=== PATIENT | male | born 1980 | race Caucasian/White ===

== ENCOUNTER 2016-08-26 23:22 | Emergency (ER) | payer OTHER ==
[~2016-08-26 23:22] MED LIST: COL100 PO; FLE10 PO; LIPI20 PO; MORPHINE SULFAT60 MG PO; MORPHINE10 MG PO; MSC30 PO; PHE25 PO; PRI20 PO; PROTONIX40 MG PO; REG5 PO
[2016-08-27 00:36] LABS: BASOPHIL % 0.3 % (0-2); PLATELET COUNT 254 x10^3mcL (130-400); RED CELL DISTRIBUTION WIDTH 13.1 % (11.5-14.5)
[2016-08-27 00:43] LABS: CALCIUM 9.4 mg/dL (8.5-10.1); CARBON DIOXIDE 23.7 mmol/L (21-32); CHLORIDE SERUM 104 mmol/L (98-107); CREATININE SERUM 1.2 mg/dL (0.7-1.3); GFR1 > 60 mL/min; GLUCOSE SERUM 142 mg/dL (74-106); POTASSIUM SERUM 3.5 mmol/L (3.5-5.1); SODIUM SERUM 140 mmol/L (136-145)
[2016-08-27 00:49] LABS: ALBUMIN 4.6 g/dL (3.4-5.0); ALKALINE PHOSPHATASE 66 U/L (46-116); ALT/SGPT 24 U/L (16-63); AST/SGOT 17 U/L (15-37); BILIRUBIN TOTAL 0.5 mg/dL (0.20-1.00); LIPASE 222 IU/L (73-393)
[2016-08-27 00:50] LABS: TOTAL PROTEIN, SERUM 8.5 g/dL (6.4-8.2)
[2016-08-27 02:51] VITALS: BP 108/56
== END 2016-08-27 02:51 | disposition home or self-care (01) ==
LOC: ED 23:22
PROVIDERS: Emergency Medicine
DX: R10.13 Epigastric pain (principal); R11.10 Vomiting, unspecified
CPT/HCPCS: 36415; J1630; J1885; J2270; Q0162

== ENCOUNTER 2016-08-29 03:16 | Inpatient (IN) | payer OTHER ==
[~2016-08-29] VITALS: Ht 172.7 cm; Wt 90.7 kg
[2016-08-29 04:05] LABS: BASOPHIL % 0 % (0-2); PLATELET COUNT 255 x10^3mcL (130-400); RED CELL DISTRIBUTION WIDTH 13.3 % (11.5-14.5)
[2016-08-29 04:12] LABS: CALCIUM 9.1 mg/dL (8.5-10.1); CARBON DIOXIDE 23.6 mmol/L (21-32); CHLORIDE SERUM 103 mmol/L (98-107); CREATININE SERUM 1.2 mg/dL (0.7-1.3); GFR1 > 60 mL/min; GLUCOSE SERUM 119 mg/dL (74-106); POTASSIUM SERUM 3.4 mmol/L (3.5-5.1); SODIUM SERUM 139 mmol/L (136-145)
[2016-08-29 04:26] LABS: ALBUMIN 4.3 g/dL (3.4-5.0); ALKALINE PHOSPHATASE 63 U/L (46-116); ALT/SGPT 27 U/L (16-63); AMYLASE 47 U/L (25-115); AST/SGOT 21 U/L (15-37); BILIRUBIN TOTAL 0.57 mg/dL (0.20-1.00); LIPASE 308 IU/L (73-393); TOTAL PROTEIN, SERUM 7.9 g/dL (6.4-8.2)
[2016-08-29 05:40] LABS: FREE T4 1.17 ng/dL (0.76-1.46); FREE THYROXINE INDEX 2.9 ug/dL (1.4-4.5); T4(THYROXINE) 8.4 ug/dL (4.7-13.3)
[2016-08-29 05:48] LABS: T3 TOTAL 1.24 ng/mL
[2016-08-29 05:52] LABS: MAGNESIUM 1.8 mg/dL (1.8-2.4); PHOSPHOROUS 1.5 mg/dL (2.5-4.9)
[2016-08-29 05:53] LABS: CHOLESTEROL/HDL RATIO 2.6
[2016-08-29 07:52] VITALS: BP 109/64; BP 709/64
[2016-08-29 08:20] LABS: microscopic required? YES; urine erythrocyte NEGATIVE (NEGATIVE)
[2016-08-29 08:36] LABS: AMPHETAMINE QUAL UR NONE DETECTED (NEG <=1000)
[2016-08-29 09:40] VITALS: BP 105/57
[2016-08-29 13:42] VITALS: BP 123/66
[2016-08-29 17:05] VITALS: BP 109/64
[2016-08-29 20:00] VITALS: BP 109/69
[2016-08-29 21:25] VITALS: BP 117/78
[2016-08-30 05:31] VITALS: BP 114/78
[2016-08-30 08:32] VITALS: BP 136/83
[2016-08-30] MEDS ORDERED: ZOFRAN ODT8 MG PO (08:42)
[2016-08-30 08:54] VITALS: Ht 172.7 cm; Wt 90.7 kg
[2016-08-30 09:02] VITALS: BP 136/83
== END 2016-08-30 10:45 | disposition home or self-care (01) | DRG 776 ==
LOC: ED 03:16 → DU 04:56
PROVIDERS: Emergency Medicine; ADMIT Family Medicine
DX: F12.10 Cannabis abuse, uncomplicated (principal); N17.0 Acute kidney failure with tubular necrosis; E87.6 Hypokalemia; E83.42 Hypomagnesemia; E66.9 Obesity, unspecified; Z68.30 Body mass index [BMI] 30.0-30.9, adult; Z90.49 Acquired absence of other specified parts of digestive tract; Z79.899 Other long term (current) drug therapy; Z87.891 Personal history of nicotine dependence
CPT/HCPCS: 83880; 84439; J1630; J2270; J2405; J2765; J7030; J8597

== ENCOUNTER 2017-04-02 21:13 | Inpatient (IN) | payer OTHER ==
[~2017-04-02] VITALS: Ht 172.7 cm; Wt 93.0 kg
[~2017-04-02 21:13] MED LIST changes: +ZOFRAN ODT8 MG PO
[2017-04-02 21:52] VITALS: Ht 172.7 cm; Wt 93.0 kg
[2017-04-02 23:25] LABS: BASOPHIL % 0.8 % (0-2); PLATELET COUNT 280 x10^3mcL (130-400); RED CELL DISTRIBUTION WIDTH 13.1 % (11.5-14.5)
[2017-04-02 23:36] LABS: CALCIUM 9.1 mg/dL (8.5-10.1); CARBON DIOXIDE 24.9 mmol/L (21-32); CHLORIDE SERUM 105 mmol/L (98-107); CREATININE SERUM 1.1 mg/dL (0.7-1.3); GFR1 > 60 mL/min; GLUCOSE SERUM 104 mg/dL (74-106); POTASSIUM SERUM 3.5 mmol/L (3.5-5.1); SODIUM SERUM 143 mmol/L (136-145)
[2017-04-02 23:40] LABS: ALBUMIN 4.3 g/dL (3.4-5.0); ALKALINE PHOSPHATASE 70 U/L (46-116); ALT/SGPT 23 U/L (16-63); AST/SGOT 13 U/L (15-37); BILIRUBIN TOTAL 0.5 mg/dL (0.20-1.00); LIPASE 263 IU/L (73-393); TOTAL PROTEIN, SERUM 7.7 g/dL (6.4-8.2)
[2017-04-03 08:52] VITALS: BP 125/85
[2017-04-03 10:17] VITALS: BP 125/85
[2017-04-03 12:56] VITALS: BP 122/74
[2017-04-03 15:55] LABS: MAGNESIUM 2.1 mg/dL (1.8-2.4); PHOSPHOROUS 3.8 mg/dL (2.5-4.9)
[2017-04-03 16:00] LABS: FREE T4 0.86 ng/dL (0.76-1.46); FREE THYROXINE INDEX 1.9 ug/dL (1.4-4.5); T4(THYROXINE) 5.5 ug/dL (4.7-13.3)
[2017-04-03 16:10] LABS: T3 TOTAL 0.87 ng/mL
[2017-04-03 16:41] VITALS: BP 121/74
[2017-04-03 21:23] VITALS: BP 99/74
[2017-04-04 03:15] LABS: microscopic required? NO
[2017-04-04 03:21] LABS: UA SPECIFIC GRAVITY >=1.030 (1.005-1.035); urine erythrocyte NEGATIVE (NEGATIVE)
[2017-04-04 03:33] LABS: AMPHETAMINE QUAL UR NONE DETECTED (NEG <=1000)
[2017-04-04 05:17] VITALS: BP 119/77
[2017-04-04 07:30] LABS: PLATELET COUNT 246 x10^3mcL (130-400); RED CELL DISTRIBUTION WIDTH 13.4 % (11.5-14.5)
[2017-04-04 07:40] LABS: CALCIUM 8.2 mg/dL (8.5-10.1); CHLORIDE SERUM 108 mmol/L (98-107); CREATININE SERUM 1.1 mg/dL (0.7-1.3); GFR1 > 60 mL/min; GLUCOSE SERUM 91 mg/dL (74-106); POTASSIUM SERUM 3.6 mmol/L (3.5-5.1); SODIUM SERUM 144 mmol/L (136-145)
[2017-04-04 08:21] LABS: CHOLESTEROL/HDL RATIO 2.3
[2017-04-04 09:43] VITALS: BP 120/82
[2017-04-04 11:25] VITALS: BP 120/82
[2017-04-04] MEDS ORDERED: ZOFRAN ODT8 MG PO (11:26)
[2017-04-04] MEDS ORDERED: PROTONIX40 MG PO (11:27)
== END 2017-04-04 13:22 | disposition home or self-care (01) | DRG 249 ==
LOC: ED 21:13 → DU 04-03 04:10
PROVIDERS: Emergency Medicine; Family Medicine; Student in an Organized Health Care Education/Training Program
DX: A08.4 Viral intestinal infection, unspecified (principal); K86.1 Other chronic pancreatitis; F12.11 Cannabis abuse, in remission; G43.A0 Cyclical vomiting, in migraine, not intractable; K21.9 Gastro-esophageal reflux disease without esophagitis; Z68.30 Body mass index [BMI] 30.0-30.9, adult; Z90.49 Acquired absence of other specified parts of digestive tract
CPT/HCPCS: 83880; 84439; J2270; J2405; J2550; J3490; J7030

== ENCOUNTER 2017-04-27 09:47 | Inpatient (IN) | payer OTHER ==
[~2017-04-27] VITALS: Ht 172.7 cm; Wt 92.1 kg
[2017-04-27 10:40] LABS: BASOPHIL % 0.1 % (0-2); PLATELET COUNT 330 x10^3mcL (130-400); RED CELL DISTRIBUTION WIDTH 12.7 % (11.5-14.5)
[2017-04-27 11:08] LABS: ALBUMIN 4.5 g/dL (3.4-5.0); ALKALINE PHOSPHATASE 77 U/L (46-116); ALT/SGPT 43 U/L (16-63); AST/SGOT 22 U/L (15-37); BILIRUBIN TOTAL 0.4 mg/dL (0.20-1.00); CALCIUM 9.5 mg/dL (8.5-10.1); CARBON DIOXIDE 22.2 mmol/L (21-32); CHLORIDE SERUM 103 mmol/L (98-107); GFR1 > 60 mL/min; GLUCOSE SERUM 124 mg/dL (74-106); LIPASE 675 IU/L (73-393); POTASSIUM SERUM 3.4 mmol/L (3.5-5.1); SODIUM SERUM 138 mmol/L (136-145); TOTAL PROTEIN, SERUM 8.9 g/dL (6.4-8.2)
[2017-04-27] MEDS ORDERED: MORPHINE SULFAT30 M2 PO (12:50)
[2017-04-27 13:34] VITALS: BP 128/68
[2017-04-27 13:41] LABS: T3 TOTAL 0.99 ng/mL
[2017-04-27 14:54] LABS: MAGNESIUM 1.9 mg/dL (1.8-2.4); PHOSPHOROUS 2.8 mg/dL (2.5-4.9)
[2017-04-27 14:55] LABS: CHOLESTEROL/HDL RATIO 2.9
[2017-04-27 15:02] LABS: FREE T4 0.79 ng/dL (0.76-1.46); T4(THYROXINE) 6.4 ug/dL (4.7-13.3)
[2017-04-27 17:30] VITALS: BP 143/93
[2017-04-27 20:54] VITALS: BP 118/76
[2017-04-28 05:45] VITALS: BP 138/87
[2017-04-28 07:32] LABS: BASOPHIL % 0.7 % (0-2); PLATELET COUNT 215 x10^3mcL (130-400); RED CELL DISTRIBUTION WIDTH 12.9 % (11.5-14.5)
[2017-04-28 08:31] LABS: CALCIUM 8.1 mg/dL (8.5-10.1); CARBON DIOXIDE 20.6 mmol/L (21-32); CHLORIDE SERUM 109 mmol/L (98-107); GFR1 > 60 mL/min; GLUCOSE SERUM 104 mg/dL (74-106); PHOSPHOROUS 3.7 mg/dL (2.5-4.9); POTASSIUM SERUM 3.7 mmol/L (3.5-5.1); SODIUM SERUM 140 mmol/L (136-145)
[2017-04-28 09:24] VITALS: BP 111/41
[2017-04-28 13:17] VITALS: Ht 172.7 cm; Wt 92.1 kg
[2017-04-28 13:52] VITALS: BP 136/75
[2017-04-28 17:21] VITALS: BP 113/78
[2017-04-28 19:48] LABS: microscopic required? NO
[2017-04-28 20:15] LABS: urine erythrocyte NEGATIVE (NEGATIVE)
[2017-04-28 20:23] LABS: AMPHETAMINE QUAL UR NONE DETECTED (NEG <=1000)
[2017-04-28 20:47] VITALS: BP 143/62
[2017-04-28 21:31] VITALS: BP 142/76
[2017-04-29 06:12] VITALS: BP 138/100
[2017-04-29 07:37] LABS: BASOPHIL % 0.9 % (0-2); PLATELET COUNT 211 x10^3mcL (130-400); RED CELL DISTRIBUTION WIDTH 12.9 % (11.5-14.5)
[2017-04-29 07:40] LABS: CALCIUM 7.6 mg/dL (8.5-10.1); CARBON DIOXIDE 23.3 mmol/L (21-32); CHLORIDE SERUM 109 mmol/L (98-107); GFR1 > 60 mL/min; GLUCOSE SERUM 92 mg/dL (74-106); PHOSPHOROUS 2.7 mg/dL (2.5-4.9); POTASSIUM SERUM 3.7 mmol/L (3.5-5.1); SODIUM SERUM 141 mmol/L (136-145)
[2017-04-29 08:02] VITALS: BP 132/87
[2017-04-29 17:11] VITALS: BP 121/76
[2017-04-29 21:02] VITALS: BP 130/79
[2017-04-30 05:16] VITALS: BP 119/80
[2017-04-30 07:12] LABS: BASOPHIL % 0.7 % (0-2); PLATELET COUNT 243 x10^3mcL (130-400)
[2017-04-30 07:36] LABS: CALCIUM 8.6 mg/dL (8.5-10.1); CARBON DIOXIDE 25.5 mmol/L (21-32); CHLORIDE SERUM 107 mmol/L (98-107); GFR1 > 60 mL/min; GLUCOSE SERUM 87 mg/dL (74-106); MAGNESIUM 2.1 mg/dL (1.8-2.4); PHOSPHOROUS 3.3 mg/dL (2.5-4.9); POTASSIUM SERUM 3.4 mmol/L (3.5-5.1); SODIUM SERUM 143 mmol/L (136-145)
[2017-04-30 09:38] VITALS: BP 128/89
[2017-04-30] MEDS ORDERED: ZOFRAN ODT8 MG PO (12:10)
[2017-04-30] MEDS ORDERED: ELA25 PO (12:11)
[2017-04-30] MEDS ORDERED: SIMETHICONE80 MG CH (12:12)
[2017-04-30] MEDS ORDERED: AMITIZA24 MC1 PO (12:13)
[2017-04-30] MEDS ORDERED: COL100 PO (12:14)
[2017-04-30] MEDS ORDERED: PAN PO (12:14)
[2017-04-30 12:59] VITALS: BP 128/89
== END 2017-04-30 15:36 | disposition home or self-care (01) | DRG 951 ==
LOC: ED 09:47 → DU 12:19 → MU 12:19 → DU 13:31 → MU 04-28 12:08
PROVIDERS: Emergency Medicine; Family Medicine; Internal Medicine Gastroenterology; Student in an Organized Health Care Education/Training Program
PROC: 0D778ZZ Dilation of Stomach, Pylorus, Via Natural or Artificial Opening Endoscopic (ICD-10-PCS; principal; 2017-04-29 12:30)
PROC: 0DB58ZX Excision of Esophagus, Via Natural or Artificial Opening Endoscopic, Diagnostic (ICD-10-PCS; 2017-04-29 12:30)
DX: K85.90 Acute pancreatitis without necrosis or infection, unspecified (principal); E87.8 Other disorders of electrolyte and fluid balance, not elsewhere classified; E87.6 Hypokalemia; E66.9 Obesity, unspecified; Z68.31 Body mass index [BMI] 31.0-31.9, adult; E02 Subclinical iodine-deficiency hypothyroidism; D64.9 Anemia, unspecified; F17.200 Nicotine dependence, unspecified, uncomplicated
CPT/HCPCS: 43235; 83880; 84439; C1769; C9113; J1170; J1200; J1610; J1885; J2250; J2270; J2310; J2405; J2550; J3010; J3480; J3490; J7030; Q9966; Q9967

== ENCOUNTER 2017-07-05 19:32 | Emergency (ER) | payer OTHER ==
[~2017-07-05] VITALS: Ht 172.7 cm; Wt 98.0 kg
[~2017-07-05 19:32] MED LIST changes: +AMITIZA24 MC1 PO; +ELA25 PO; +MORPHINE SULFAT30 M2 PO; +PAN PO; +SIMETHICONE80 MG CH
[2017-07-05 19:41] VITALS: Ht 172.7 cm; Wt 98.0 kg
[2017-07-05 20:51] LABS: BASOPHIL % 1.1 % (0-2); PLATELET COUNT 293 x10^3mcL (130-400)
[2017-07-05 20:52] LABS: CALCIUM 8.9 mg/dL (8.5-10.1); CARBON DIOXIDE 28.5 mmol/L (21-32); CHLORIDE SERUM 101 mmol/L (98-107); CREATININE SERUM 1.1 mg/dL (0.7-1.3); GFR1 > 60 mL/min; GLUCOSE SERUM 95 mg/dL (74-106); POTASSIUM SERUM 3.7 mmol/L (3.5-5.1); SODIUM SERUM 138 mmol/L (136-145)
[2017-07-05 20:56] LABS: ALBUMIN 4.2 g/dL (3.4-5.0); ALKALINE PHOSPHATASE 70 U/L (46-116); ALT/SGPT 30 U/L (16-63); AMYLASE 48 U/L (25-115); AST/SGOT 20 U/L (15-37); BILIRUBIN TOTAL 0.2 mg/dL (0.20-1.00); LIPASE 285 IU/L (73-393); TOTAL PROTEIN, SERUM 8.1 g/dL (6.4-8.2)
[2017-07-05 22:01] VITALS: BP 104/71
== END 2017-07-05 22:01 | disposition home or self-care (01) ==
LOC: ED 19:32
PROVIDERS: Specialist
DX: G89.29 Other chronic pain (principal); R10.9 Unspecified abdominal pain; R11.10 Vomiting, unspecified; R19.7 Diarrhea, unspecified
CPT/HCPCS: 83880; J1885; J2405; J3010; J7030

== ENCOUNTER 2018-04-19 12:34 | Emergency (ER) | payer OTHER ==
[~2018-04-19] VITALS: Ht 172.7 cm; Wt 95.7 kg
[2018-04-19 12:42] VITALS: Ht 172.7 cm; Wt 95.7 kg
[2018-04-19 15:21] LABS: BASOPHIL % 0.2 % (0-2); PLATELET COUNT 278 x10^3mcL (130-400); RED CELL DISTRIBUTION WIDTH 13.5 % (11.5-14.5)
[2018-04-19 15:33] LABS: CALCIUM 8.5 mg/dL (8.5-10.1); CARBON DIOXIDE 24.5 mmol/L (21-32); CHLORIDE SERUM 107 mmol/L (98-107); CREATININE SERUM 1.1 mg/dL (0.7-1.3); GFR1 > 60 mL/min; GLUCOSE SERUM 108 mg/dL (74-106); POTASSIUM SERUM 3.1 mmol/L (3.5-5.1); SODIUM SERUM 142 mmol/L (136-145)
[2018-04-19 15:38] LABS: ALKALINE PHOSPHATASE 50 U/L (46-116); ALT/SGPT 25 U/L (16-63); AST/SGOT 16 U/L (15-37); BILIRUBIN TOTAL 0.2 mg/dL (0.20-1.00); LIPASE 144 IU/L (73-393); TOTAL PROTEIN, SERUM 6.9 g/dL (6.4-8.2)
[2018-04-19 15:39] LABS: ALBUMIN 3.3 g/dL (3.4-5.0)
[2018-04-19 17:43] VITALS: BP 115/87
== END 2018-04-19 17:43 | disposition home or self-care (01) ==
LOC: ED 12:34
PROVIDERS: Emergency Medicine
DX: E87.6 Hypokalemia (principal); G89.29 Other chronic pain; R10.9 Unspecified abdominal pain
CPT/HCPCS: J1630; J2060; J3490; J7030

== ENCOUNTER 2018-07-07 15:14 | Inpatient (IN) | payer OTHER ==
[~2018-07-07] VITALS: Ht 172.7 cm; Wt 88.6 kg
[2018-07-07 15:18] VITALS: Ht 172.7 cm; Wt 88.6 kg
[2018-07-07 18:34] LABS: BASOPHIL % 0.4 % (0-2); PLATELET COUNT 293 x10^3mcL (130-400); RED CELL DISTRIBUTION WIDTH 13.3 % (11.5-14.5)
[2018-07-07 18:36] LABS: ALBUMIN 4.6 g/dL (3.4-5.0); ALKALINE PHOSPHATASE 71 U/L (46-116); ALT/SGPT 25 U/L (16-63); AST/SGOT 14 U/L (15-37); BILIRUBIN TOTAL 0.61 mg/dL (0.20-1.00); CALCIUM 9.5 mg/dL (8.5-10.1); CARBON DIOXIDE 19.1 mmol/L (21-32); CHLORIDE SERUM 103 mmol/L (98-107); CREATININE SERUM 1.3 mg/dL (0.7-1.3); GFR1 > 60 mL/min; GLUCOSE SERUM 133 mg/dL (74-106); LIPASE 169 IU/L (73-393); SODIUM SERUM 140 mmol/L (136-145)
[2018-07-07 18:38] LABS: TOTAL PROTEIN, SERUM 8.7 g/dL (6.4-8.2)
[2018-07-07 19:41] LABS: MAGNESIUM 1.7 mg/dL (1.8-2.4)
[2018-07-07 19:47] LABS: T3 TOTAL 1.12 ng/mL
[2018-07-07 19:50] LABS: FREE T4 1.08 ng/dL (0.76-1.46); FREE THYROXINE INDEX 3.3 ug/dL (1.4-4.5); T4(THYROXINE) 9.3 ug/dL (4.7-13.3)
[2018-07-07 19:52] LABS: CHOLESTEROL/HDL RATIO 3.3; PHOSPHOROUS 0.9 mg/dL (2.5-4.9)
[2018-07-07 20:09] LABS: UA SPECIFIC GRAVITY 1.015 (1.005-1.035); microscopic required? YES; urine erythrocyte NEGATIVE (NEGATIVE)
[2018-07-07 20:16] LABS: AMPHETAMINE QUAL UR NONE DETECTED (See below)
[2018-07-07 20:17] VITALS: BP 121/64
[2018-07-08 05:55] VITALS: BP 129/69
[2018-07-08 06:20] LABS: BASOPHIL % 0.3 % (0-2); PLATELET COUNT 308 x10^3mcL (130-400); RED CELL DISTRIBUTION WIDTH 13.2 % (11.5-14.5)
[2018-07-08 06:52] LABS: CALCIUM 8.8 mg/dL (8.5-10.1); CARBON DIOXIDE 24.9 mmol/L (21-32); CHLORIDE SERUM 104 mmol/L (98-107); GFR1 > 60 mL/min; GLUCOSE SERUM 119 mg/dL (74-106); MAGNESIUM 1.9 mg/dL (1.8-2.4); PHOSPHOROUS 3.5 mg/dL (2.5-4.9); POTASSIUM SERUM 3.1 mmol/L (3.5-5.1); SODIUM SERUM 143 mmol/L (136-145)
[2018-07-08 10:20] VITALS: BP 112/74
[2018-07-08 12:47] VITALS: BP 159/93
[2018-07-08 16:12] VITALS: BP 142/63
[2018-07-08 17:01] VITALS: BP 107/52
[2018-07-08 20:18] VITALS: BP 118/51
[2018-07-09 06:09] LABS: BASOPHIL % 0.2 % (0-2); PLATELET COUNT 228 x10^3mcL (130-400); RED CELL DISTRIBUTION WIDTH 13.2 % (11.5-14.5)
[2018-07-09 06:27] VITALS: BP 125/68
[2018-07-09 06:37] LABS: CALCIUM 8.1 mg/dL (8.5-10.1); CARBON DIOXIDE 24.5 mmol/L (21-32); CHLORIDE SERUM 106 mmol/L (98-107); CREATININE SERUM 0.9 mg/dL (0.7-1.3); GFR1 > 60 mL/min; GLUCOSE SERUM 89 mg/dL (74-106); PHOSPHOROUS 2.9 mg/dL (2.5-4.9); POTASSIUM SERUM 3.1 mmol/L (3.5-5.1); SODIUM SERUM 142 mmol/L (136-145)
[2018-07-09 09:35] VITALS: BP 127/77
[2018-07-09 17:00] VITALS: BP 145/90
[2018-07-09 20:50] VITALS: BP 133/84
[2018-07-10 05:21] VITALS: BP 136/78
[2018-07-10 09:29] VITALS: BP 157/102
[2018-07-10] MEDS ORDERED: ZOFI PO (12:12)
[2018-07-10 12:39] VITALS: BP 157/102
== END 2018-07-10 13:18 | disposition home or self-care (01) | DRG 720 ==
LOC: ED 15:14 → DU 19:00 → MU 19:00 → DU 20:05 → MU 20:07
PROVIDERS: Emergency Medicine; ADMIT Family Medicine
DX: A41.9 Sepsis, unspecified organism (principal); N17.0 Acute kidney failure with tubular necrosis; G43.A0 Cyclical vomiting, in migraine, not intractable; K86.1 Other chronic pancreatitis; E83.39 Other disorders of phosphorus metabolism; F12.10 Cannabis abuse, uncomplicated; E86.0 Dehydration; E87.6 Hypokalemia; R80.9 Proteinuria, unspecified; E78.5 Hyperlipidemia, unspecified; G89.29 Other chronic pain; M54.9 Dorsalgia, unspecified; F11.10 Opioid abuse, uncomplicated; F16.10 Hallucinogen abuse, uncomplicated; Z68.29 Body mass index [BMI] 29.0-29.9, adult; Z90.49 Acquired absence of other specified parts of digestive tract; Z79.899 Other long term (current) drug therapy
CPT/HCPCS: 84439; C9113; G0480; J1885; J2060; J2270; J2405; J2550; J2765; J3480; J7030; Q0163

== ENCOUNTER 2018-08-27 17:14 | Inpatient (IN) | payer OTHER ==
[~2018-08-27] VITALS: Ht 172.7 cm; Wt 86.7 kg
[~2018-08-27 17:14] MED LIST changes: +ZOFI PO
[2018-08-27 19:04] LABS: BASOPHIL % 0.2 % (0-2); PLATELET COUNT 285 x10^3mcL (130-400); RED CELL DISTRIBUTION WIDTH 13.6 % (11.5-14.5)
[2018-08-27 19:22] LABS: CALCIUM 10.3 mg/dL (8.5-10.1); CARBON DIOXIDE 17.9 mmol/L (21-32); CHLORIDE SERUM 106 mmol/L (98-107); CREATININE SERUM 1.2 mg/dL (0.7-1.3); GFR1 > 60 mL/min; GLUCOSE SERUM 127 mg/dL (74-106); POTASSIUM SERUM 3.3 mmol/L (3.5-5.1); SODIUM SERUM 143 mmol/L (136-145)
[2018-08-27 19:27] LABS: ALBUMIN 4.5 g/dL (3.4-5.0); ALKALINE PHOSPHATASE 68 U/L (46-116); ALT/SGPT 19 U/L (16-63); AMYLASE 32 U/L (25-115); AST/SGOT 10 U/L (15-37); BILIRUBIN TOTAL 0.49 mg/dL (0.20-1.00); LIPASE 199 IU/L (73-393); TOTAL PROTEIN, SERUM 8.5 g/dL (6.4-8.2)
[2018-08-27] MEDS ORDERED: PHEDML (22:50)
[2018-08-27] MEDS ORDERED: MORPHINE SULFAT15 MG (22:50)
[2018-08-27 23:43] LABS: CHOLESTEROL/HDL RATIO 3.8; PHOSPHOROUS 1.1 mg/dL (2.5-4.9)
[2018-08-27 23:53] VITALS: BP 131/69
[2018-08-28 00:01] VITALS: Ht 172.7 cm; Wt 86.7 kg
[2018-08-28 00:02] LABS: UA SPECIFIC GRAVITY 1.015 (1.005-1.035); microscopic required? YES
[2018-08-28 00:03] LABS: urine erythrocyte NEGATIVE (NEGATIVE)
[2018-08-28 00:07] LABS: AMPHETAMINE QUAL UR NONE DETECTED (See below)
[2018-08-28 06:03] VITALS: BP 102/52
[2018-08-28 06:28] LABS: BASOPHIL % 0.1 % (0-2); PLATELET COUNT 248 x10^3mcL (130-400); RED CELL DISTRIBUTION WIDTH 13.7 % (11.5-14.5)
[2018-08-28 06:39] LABS: T3 TOTAL 1.06 ng/mL
[2018-08-28 07:02] LABS: FREE T4 0.98 ng/dL (0.76-1.46); FREE THYROXINE INDEX 2.5 ug/dL (1.4-4.5); T4(THYROXINE) 7.2 ug/dL (4.7-13.3)
[2018-08-28 07:14] LABS: CARBON DIOXIDE 18.9 mmol/L (21-32); CHLORIDE SERUM 109 mmol/L (98-107); GFR1 > 60 mL/min; GLUCOSE SERUM 126 mg/dL (74-106); POTASSIUM SERUM 3.6 mmol/L (3.5-5.1); SODIUM SERUM 144 mmol/L (136-145)
[2018-08-28 09:22] VITALS: BP 112/72
[2018-08-28] MEDS ORDERED: MORPHINE SULFAT60 MG PO (10:33)
[2018-08-28 17:04] VITALS: BP 116/78
[2018-08-28 21:11] VITALS: BP 120/76
[2018-08-29 05:44] VITALS: BP 135/87
[2018-08-29 06:16] LABS: BASOPHIL % 0.5 % (0-2); PLATELET COUNT 226 x10^3mcL (130-400); RED CELL DISTRIBUTION WIDTH 13.8 % (11.5-14.5)
[2018-08-29 06:42] LABS: CALCIUM 8.3 mg/dL (8.5-10.1); CARBON DIOXIDE 24.7 mmol/L (21-32); CHLORIDE SERUM 109 mmol/L (98-107); CREATININE SERUM 0.9 mg/dL (0.7-1.3); GFR1 > 60 mL/min; GLUCOSE SERUM 96 mg/dL (74-106); MAGNESIUM 2.1 mg/dL (1.8-2.4); POTASSIUM SERUM 3.8 mmol/L (3.5-5.1); SODIUM SERUM 143 mmol/L (136-145)
[2018-08-29 09:45] VITALS: BP 129/86
[2018-08-29] MEDS ORDERED: METOCLOPRAMIDE10 M2 PO (12:03)
[2018-08-29] MEDS ORDERED: ATIVAN1 MG PO (12:03)
[2018-08-29 13:10] VITALS: BP 129/86
== END 2018-08-29 14:10 | disposition home or self-care (01) | DRG 254 ==
LOC: ED 17:14 → MU 22:29 → EDBEDREQ 22:45 → MU 23:15
PROVIDERS: Internal Medicine; Specialist; ADMIT Family Medicine
DX: K31.89 Other diseases of stomach and duodenum (principal); N17.0 Acute kidney failure with tubular necrosis; F12.90 Cannabis use, unspecified, uncomplicated; K86.1 Other chronic pancreatitis; G89.29 Other chronic pain; M54.9 Dorsalgia, unspecified; E83.39 Other disorders of phosphorus metabolism; E87.6 Hypokalemia; R11.2 Nausea with vomiting, unspecified; D72.829 Elevated white blood cell count, unspecified; Z90.49 Acquired absence of other specified parts of digestive tract
CPT/HCPCS: 84439; G0480; J1200; J1885; J2060; J2270; J2405; J2550; J2765; J3010; J3490; J7030; Q0092

== ENCOUNTER 2018-10-15 08:30 | Emergency (ER) | payer OTHER ==
[~2018-10-15] VITALS: Ht 172.7 cm; Wt 86.2 kg
[~2018-10-15 08:30] MED LIST changes: +ATIVAN1 MG PO; +METOCLOPRAMIDE10 M2 PO; +MORPHINE SULFAT15 MG; +PHEDML
[2018-10-15 08:34] VITALS: Ht 172.7 cm; Wt 86.2 kg
[2018-10-15 10:30] VITALS: BP 129/79
== END 2018-10-15 10:30 | disposition home or self-care (01) ==
LOC: ED 08:30
DX: S05.01XA Injury of conjunctiva and corneal abrasion without foreign body, right eye, initial encounter (principal); Z90.49 Acquired absence of other specified parts of digestive tract; W22.8XXA Striking against or struck by other objects, initial encounter; Y93.89 Activity, other specified; Y92.89 Other specified places as the place of occurrence of the external cause; Y99.0 Civilian activity done for income or pay

== ENCOUNTER 2019-02-07 09:23 | Emergency (ER) | payer OTHER ==
[~2019-02-07] VITALS: Ht 172.7 cm; Wt 81.6 kg
[2019-02-07 09:27] VITALS: Ht 172.7 cm; Wt 81.6 kg
[2019-02-07 11:24] LABS: CALCIUM 9.4 mg/dL (8.5-10.1); CARBON DIOXIDE 26.3 mmol/L (21-32); CHLORIDE SERUM 104 mmol/L (98-107); CREATININE SERUM 1.1 mg/dL (0.7-1.3); GFR1 > 60 mL/min; GLUCOSE SERUM 122 mg/dL (74-106); POTASSIUM SERUM 3.6 mmol/L (3.5-5.1); SODIUM SERUM 143 mmol/L (136-145)
[2019-02-07 11:29] LABS: ALBUMIN 4.8 g/dL (3.4-5.0); ALKALINE PHOSPHATASE 67 U/L (46-116); ALT/SGPT 26 U/L (16-63); AST/SGOT 9 U/L (15-37); BILIRUBIN TOTAL 0.59 mg/dL (0.20-1.00); LIPASE 140 IU/L (73-393); TOTAL PROTEIN, SERUM 8.7 g/dL (6.4-8.2)
[2019-02-07 11:30] LABS: PLATELET COUNT 288 x10^3mcL (130-400); RED CELL DISTRIBUTION WIDTH 13.4 % (11.5-14.5)
[2019-02-07 11:31] LABS: BASOPHIL % 0 % (0-2)
[2019-02-07 13:15] VITALS: BP 128/79
== END 2019-02-07 13:15 | disposition home or self-care (01) ==
LOC: ED 09:23
PROVIDERS: Emergency Medicine
DX: R11.15 Cyclical vomiting syndrome unrelated to migraine (principal); R10.816 Epigastric abdominal tenderness; Z90.49 Acquired absence of other specified parts of digestive tract
CPT/HCPCS: J1630; J2270; J2405; J2765; J3010; J7030

== ENCOUNTER 2019-10-18 04:07 | Inpatient (IN) | payer OTHER ==
[~2019-10-18] VITALS: Ht 175.3 cm; Wt 82.6 kg
[2019-10-18 04:15] VITALS: Ht 175.3 cm; Wt 82.6 kg
[2019-10-18 05:20] LABS: CALCIUM 9.4 mg/dL (8.5-10.1); CHLORIDE SERUM 103 mmol/L (98-107); CREATININE SERUM 1.3 mg/dL (0.7-1.3); GFR1 > 60 mL/min; GLUCOSE SERUM 119 mg/dL (74-106); POTASSIUM SERUM 3.5 mmol/L (3.5-5.1); SODIUM SERUM 140 mmol/L (136-145)
[2019-10-18 05:25] LABS: ALBUMIN 4.7 g/dL (3.4-5.0); ALKALINE PHOSPHATASE 61 U/L (46-116); ALT/SGPT 22 U/L (16-63); AMYLASE 40 U/L (25-115); AST/SGOT 14 U/L (15-37); BILIRUBIN TOTAL 0.61 mg/dL (0.20-1.00); LIPASE 215 IU/L (73-393); TOTAL PROTEIN, SERUM 8.1 g/dL (6.4-8.2)
[2019-10-18 05:42] LABS: PLATELET COUNT 276 x10^3mcL (130-400); RED CELL DISTRIBUTION WIDTH 12.2 % (11.5-14.5)
[2019-10-18 05:46] LABS: BASOPHIL % 6.1 % (0-2)
[2019-10-18] MEDS ORDERED: MS CONTIN60 M1 PO (06:04)
[2019-10-18] MEDS ORDERED: PROTONIX TR40 M1 PO (06:05)
[2019-10-18] MEDS ORDERED: PHENERGAN25 M3 PO (06:06)
[2019-10-18 07:06] VITALS: BP 134/83
[2019-10-18 07:19] LABS: CHOLESTEROL/HDL RATIO 2.8
[2019-10-18 09:13] VITALS: BP 152/80
[2019-10-18 13:31] VITALS: BP 153/102
[2019-10-18 14:20] VITALS: BP 139/83
[2019-10-18 17:39] VITALS: BP 121/79
[2019-10-18 23:09] VITALS: BP 119/71
[2019-10-19 00:56] LABS: AMPHETAMINE QUAL UR NONE DETECTED (See below)
[2019-10-19 05:36] VITALS: BP 106/64
[2019-10-19 09:24] VITALS: BP 123/85
[2019-10-19 13:46] VITALS: BP 116/80
[2019-10-19] MEDS ORDERED: PHENERGAN25 M3 PO (15:25)
[2019-10-19] MEDS ORDERED: MS CONTIN60 M1 PO (15:26)
[2019-10-19] MEDS ORDERED: ATIVAN1 MG PO (15:27)
[2019-10-19] MEDS ORDERED: ZOFI PO (15:31)
[2019-10-19] MEDS ORDERED: METOCLOPRAMIDE10 M2 PO (15:37)
[2019-10-19] MEDS ORDERED: PROTONIX TR40 M1 PO (15:38)
[2019-10-19 17:37] VITALS: BP 124/86
[2019-10-19 17:49] VITALS: BP 124/86
== END 2019-10-19 18:45 | disposition home or self-care (01) | DRG 249 ==
LOC: ED 04:07 → MU 06:02
PROVIDERS: Emergency Medicine; ADMIT Internal Medicine; ATTEND Internal Medicine
DX: R11.10 Vomiting, unspecified (principal); K86.1 Other chronic pancreatitis; G89.4 Chronic pain syndrome; D72.829 Elevated white blood cell count, unspecified; R73.9 Hyperglycemia, unspecified; F12.10 Cannabis abuse, uncomplicated; Z90.49 Acquired absence of other specified parts of digestive tract; Z79.899 Other long term (current) drug therapy
CPT/HCPCS: G0378; J0780; J2270; J2405; J7030; J8597; Q0092

== ENCOUNTER 2020-02-26 20:22 | Emergency (ER) | payer OTHER ==
[~2020-02-26] VITALS: Ht 172.7 cm; Wt 84.4 kg
[~2020-02-26 20:22] MED LIST changes: +MS CONTIN60 M1 PO; +PHENERGAN25 M3 PO; +PROTONIX TR40 M1 PO
[2020-02-26 20:28] VITALS: Ht 172.7 cm; Wt 84.4 kg
[2020-02-26 20:56] LABS: BASOPHIL % 0.7 % (0.2-1.5); PLATELET COUNT 253 x10^3mcL (152-348); RED CELL DISTRIBUTION WIDTH 13.1 % (12.1-16.2)
[2020-02-27 01:48] VITALS: BP 140/78
== END 2020-02-27 01:48 | disposition home or self-care (01) ==
LOC: ED 20:22
DX: K86.1 Other chronic pancreatitis (principal); Z90.49 Acquired absence of other specified parts of digestive tract
CPT/HCPCS: G0480; J1885; J3010; Q0162